=== PATIENT | male | born 1980 | race African-American/Black ===

== ENCOUNTER 2020-10-02 14:20 | Emergency (ER) | payer SELFPAY ==
[2020-10-02] MEDS ORDERED: FAMOTIDINE 20 MG/2 ML VIAL IV ONE (15:51)
[2020-10-02] MEDS ORDERED: DIPHENHYDRAMINE 50 MG/ML VIAL ONE ×2 (15:51→16:51)
[2020-10-02] MEDS ORDERED: NA CHLORIDE 0.9% 1,000 ML ONE (15:51)
[2020-10-02] MEDS ORDERED: METHYLPREDNISOLONE 125 MG INJ ONE (15:51)
--- NOTE | 2020-10-03 17:28 | ER ---
Nurse's Notes [facility] Name: Darnell Banerjee III Age: 39 yrs Sex: Male : 1980 Arrival Date: 10/02/2020 Time: 14:23 Bed 8 Private MD: Diagnosis: Allergic urticaria Presentation: 10/02 15:07 Chief complaint: Patient states: Rash all over starting this morning when patient woke kg up. Pt stated he feels like its difficult to swallow and painful. Pt denies eating anything differently. Coronavirus screen: Client denies travel out of the [place] in the last 14 days. At this time, unable to obtain information related to travel outside the [place] At this time, the client does not indicate any symptoms associated with coronavirus-19. Ebola Screen: Patient negative for fever greater than or equal to 101.5 degrees Fahrenheit, and additional compatible Ebola Virus Disease symptoms Patient denies exposure to infectious person. Patient denies travel to an Ebola-affected area in the 21 days before illness onset. Initial Sepsis Screen: Does the patient meet any 2 criteria? No. Patient's initial sepsis screen is negative. Does the patient have a suspected source of infection? No. Patient's initial sepsis screen is negative. Risk Assessment: Do you want to hurt yourself or someone else? Patient reports no desire to harm self or others. Onset of symptoms was October 02, 2020 at 05:30. 15:07 Method Of Arrival: Ambulatory kg 15:07 Acuity: DANIEL 3 kg Triage Assessment: 15:10 General: Appears in no apparent distress. Behavior is calm, cooperative, appropriate kg for age, quiet. Pain: Complains of pain in Generalized Pain currently is 7 out of 10 on a pain scale. at worst was 8 out of 10 on a pain scale. level that patient reports is acceptable is 3 out of 10 on a pain scale. Quality of pain is described as Itching and hot. EENT: Swelling around eyes, lips, and tongue . Historical: - Allergies: 15:10 No Known Allergies; kg - Home Meds: 15:10 Medication to help with rash and itching, Unable to remember the name [Active]; kg - PMHx: 15:10 None; kg - PSHx: 15:10 None; kg - Immunization history:: Adult Immunizations not up to date, Client reports having NOT received the Covid vaccine. - Social history:: Smoking status: Patient reports the use of cigarette tobacco products, smokes one-half pack cigarettes per day, Patient uses alcohol, weekly. Screenin:30 Abuse screen: Denies threats or abuse. Denies injuries from another. Nutritional jl7 screening: No deficits noted. Tuberculosis screening: No symptoms or risk factors identified. Fall Risk IV access (20 points). Total Funes Fall Scale indicates No Risk (0-24 pts). Assessment: 15:30 General: Appears in no apparent distress. uncomfortable, Behavior is calm, cooperative, jl7 appropriate for age. Neuro: Level of Consciousness is awake, alert, obeys commands, Oriented to person, place, time, situation. Cardiovascular: Patient's skin is warm and dry. Respiratory: Airway is patent Respiratory effort is even, unlabored, Respiratory pattern is regular, symmetrical. EENT: Throat is clear swelling to lips noted. Derm: Rash noted that is raised. 16:20 Reassessment: Patient appears in no apparent distress at this time. Patient and/or jl7 family updated on plan of care and expected duration. Pain level reassessed. Patient is alert, oriented x 3, equal unlabored respirations, skin warm/dry/pink. Pt will be discharged once fluids are done infusing Patient states symptoms have improved. Vital Signs: 15:07 BP 125 / 86; Pulse 90; Resp 20; Temp 98.6; Pulse Ox 99% on R/A; Weight 102.06 kg (R); kg Height 6 ft. 0 in. (182.88 cm) (R); Pain 7/10; 15:07 Body Mass Index 30.52 (102.06 kg, 182.88 cm) kg ED Course: 14:23 Patient arrived in ED. rg4 15:10 Triage completed. kg 15:15 Margoth Oliveira FNP-C [facility]. kb 15:15 Kumar Villar MD is Attending Physician. kb 15:18 Mariluz Tolbert RN is Primary Nurse. jl7 15:30 Patient has correct armband on for positive identification. Bed in low position. Call jl7 light in reach. Side rails up X 1. Pulse ox on. NIBP on. 15:30 Arm band placed on right wrist. jl7 15:30 Inserted saline lock: 20 gauge in right antecubital area, using aseptic technique. jl7 16:20 No provider procedures requiring assistance completed. jl7 Administered Medications: 05:35 Drug: Benadryl (diphenhydrAMINE) 12.5 mg Route: IVP; Site: right antecubital; jl7 16:31 Follow up: Response: No adverse reaction jl7 15:35 Drug: NS 0.9% 1000 ml Route: IV; Rate: 1000 ml; Site: right antecubital; jl7 15:38 Drug: SOLU-Medrol (methylPrednisoLONE) 125 mg Route: IVP; Site: right antecubital; jl7 16:31 Follow up: Response: No adverse reaction jl7 15:40 Drug: Pepcid (famotidine) 20 mg Route: IVP; Site: right antecubital; jl7 16:31 Follow up: Response: No adverse reaction jl7 16:30 Drug: Benadryl (diphenhydrAMINE) 12.5 mg Route: IVP; Site: right antecubital; jl7 Outcome: 16:21 Discharge ordered by . pattie 16:32 Discharged to home ambulatory. jl7 16:32 Condition: stable 16:32 Discharge instructions given to patient, family, Instructed on discharge instructions, follow up and referral plans. medication usage, Demonstrated understanding of instructions, follow-up care, medications, Prescriptions given X 2. 17:21 Patient left the ED. jl7 Signatures: Margoth Oliveira FNP-C FNP-Judith Lassiter rg4 Mariluz Tolbert RN RN jl7 Rhonda Rangel RN RN kg Corrections: (The following items were deleted from the chart) 15:11 15:10 Home Meds: None; kg kg
--- NOTE | 2020-10-03 17:29 | EDPHYS ---
Physician Documentation [facility] Name: Darnell Banerjee III Age: 39 yrs Sex: Male : 1980 Arrival Date: 10/02/2020 Time: 14:23 Bed 8 Private MD: ED Physician Kumar Villar HPI: 10/02 16:02 This 39 yrs old Black Male presents to ER via Ambulatory with complaints of Sore kb Throat, Facial Swelling. 16:02 The patient has not recently seen a physician. kb 16:02 The patient's rash thought to be caused by an unknown cause. The rash is located on the kb body diffusely. The rash can be described as urticarial. Onset: The symptoms/episode began/occurred today. Associated signs and symptoms: Pertinent positives: itching. Severity of symptoms: At their worst the symptoms were mild moderate in the emergency department the symptoms are unchanged. The patient has not experienced similar symptoms in the past. Parent reports itching and rash that started today with swelling to lips and around eyes. States he feels a little bit of scratchiness to throat.. Historical: - Allergies: 15:10 No Known Allergies; kg - Home Meds: 15:10 Medication to help with rash and itching, Unable to remember the name [Active]; kg - PMHx: 15:10 None; kg - PSHx: 15:10 None; kg - Immunization history:: Adult Immunizations not up to date, Client reports having NOT received the Covid vaccine. - Social history:: Smoking status: Patient reports the use of cigarette tobacco products, smokes one-half pack cigarettes per day, Patient uses alcohol, weekly. ROS: 15:55 Constitutional: Negative for fever, chills, and weight loss. kb 15:55 Skin: Positive for rash, swelling, diffusely. 15:55 All other systems are negative. Exam: 16:00 Constitutional: This is a well developed, well nourished patient who is awake, alert, kb and in no acute distress. Head/Face: Normocephalic, atraumatic. ENT: Moist Mucous membranes Cardiovascular: Regular rate and rhythm with a normal S1 and S2. No gallops, murmurs, or rubs. No pulse deficits. Respiratory: Respirations even and unlabored. No increased work of breathing, no retractions or nasal flaring. Abdomen/GI: Soft, non-tender. No distention MS/ Extremity: Pulses equal, no cyanosis. Neurovascular intact. Full, normal range of motion. Neuro: Awake and alert, GCS 15, oriented to person, place, time, and situation. Moves all extremities. Normal gait. Psych: Awake, alert, with orientation to person, place and time. Behavior, mood, and affect are within normal limits. 16:00 Skin: Appearance: normal except for affected area, swelling, noted on the right eye, left eye, upper lip and lower lip, that are mild, consistent with urticaria, and is diffusely located. Vital Signs: 15:07 BP 125 / 86; Pulse 90; Resp 20; Temp 98.6; Pulse Ox 99% on R/A; Weight 102.06 kg (R); kg Height 6 ft. 0 in. (182.88 cm) (R); Pain 7/10; 15:07 Body Mass Index 30.52 (102.06 kg, 182.88 cm) kg MDM: 15:16 Patient medically screened. kb 15:53 Data reviewed: vital signs, nurses notes. Data interpreted: Pulse oximetry: on room air kb is 99 %. Interpretation: normal. 16:21 Counseling: I had a detailed discussion with the patient and/or guardian regarding: the kb historical points, exam findings, and any diagnostic results supporting the discharge/admit diagnosis, the need for outpatient follow up, a family practitioner, to return to the emergency department if symptoms worsen or persist or if there are any questions or concerns that arise at home. Response to treatment: the patient's symptoms have markedly improved after treatment. 10/02 15:23 Order name: IV Start; Complete Time: 15:52 kb Administered Medications: 05:35 Drug: Benadryl (diphenhydrAMINE) 12.5 mg Route: IVP; Site: right antecubital; jl7 16:31 Follow up: Response: No adverse reaction 7 15:35 Drug: NS 0.9% 1000 ml Route: IV; Rate: 1000 ml; Site: right antecubital; jl7 15:38 Drug: SOLU-Medrol (methylPrednisoLONE) 125 mg Route: IVP; Site: right antecubital; jl7 16:31 Follow up: Response: No adverse reaction [facility] 15:40 Drug: Pepcid (famotidine) 20 mg Route: IVP; Site: right antecubital; jl7 16:31 Follow up: Response: No adverse reaction jl7 16:30 Drug: Benadryl (diphenhydrAMINE) 12.5 mg Route: IVP; Site: right antecubital; jl7 Disposition: 18:52 Co-signature as Attending Physician, Kumar Villar MD. rn Disposition Summary: 10/02/20 16:21 Discharge Ordered Location: Home kb Condition: Stable kb Diagnosis - Allergic urticaria kb Followup: kb - With: Emergency Department - When: As needed - Reason: Worsening of condition Followup: kb - With: Private Physician - When: 2 - 3 days - Reason: Recheck today's complaints, Continuance of care, Re-evaluation by your physician Discharge Instructions: - Discharge Summary Sheet kb - Hives, [id number] kb - Allergies, Adult, [id number] kb Forms: - Medication Reconciliation Form kb - Thank You Letter kb - Antibiotic Education kb - Prescription Opioid Use kb Prescriptions: - Pepcid 20 mg Oral Tablet - take 1 tablet by ORAL route every 12 hours for 5 days; 10 tablet; Refills: 0, kb Product Selection Permitted - Prednisone 20 mg Oral Tablet - take 1 tablet by ORAL route once daily for 5 days; 5 tablet; Refills: 0, kb Product Selection Permitted Signatures: Margoth Oliveira FNP-C FNP-Kumar Carballo MD MD rn Leal, Jahala, RN RN jl7 Rhonda Rangel RN RN kg Corrections: (The following items were deleted from the chart) 15:11 15:10 Home Meds: None; kg kg
[2020-10-04 11:19] VITALS: BP 125/86; TEMP 98.6; O2SAT 99
== END 2020-10-02 17:21 | disposition home or self-care (01) ==
LOC: ER 14:20
DX: L50.0 Allergic urticaria (principal); F17.210 Nicotine dependence, cigarettes, uncomplicated
CPT/HCPCS: J1200; J2930; J7030